=== PATIENT | female | born 1955 | race Caucasian/White ===

== ENCOUNTER 2017-04-24 12:47 | Outpatient (CLI) | payer BC ==
--- NOTE | 2017-04-27 10:44 | DEXA Report ---
DEXA SCAN: 04/24/2017 CLINICAL INDICATION: Osteopenia. TECHNIQUE: Dual energy x-ray absorptiometry (DXA) was performed on a Pixia system. Regions measured are the AP spine, femoral neck, and, if needed, forearm. COMPARISON: None. In accordance with the International Society for Clinical Densitometry (ISCD) guidelines, data from previous exams may be reanalyzed using current recommendations and techniques. This is done to allow a more accurate basis for comparison with the current study. FINDINGS: The data for the lumbar spine is as follows: REGION BMD (g/cm/cm) T-SCORE Z-SCORE L1 0.913 -1.8 -0.9 L2 0.975 -1.9 -0.9 L3 0.985 -1.8 -0.8 L4 1.009 -1.6 -0.7 TOTAL 0.975 -1.7 -0.8 NOTE: All evaluable vertebrae are used for classification. The data for the hip is as follows: REGION BMD (g/cm/cm) T-SCORE Z-SCORE Neck 0.833 -1.5 -0.4 TOTAL 0.810 -1.6 -0.8 NOTE: The femoral neck or total proximal femur, whichever is lowest, is used for classification. IMPRESSION: THE WHO CLASSIFICATION BASED ON THE INTERNATIONAL REFERENCE STANDARD IS OSTEOPENIA. THE FRACTURE RISK IS INCREASED. RECOMMENDATION: Patients with diagnosis of osteoporosis or osteopenia should have regular bone mineral density assessment. For those eligible for Medicare, routine testing is allowed once every 2 years. Testing frequency can be increased for patients who have rapidly progressing disease or for those who are receiving medical therapy to restore bone mass. COMMENT: World Health Organization (WHO) definitions for osteoporosis and osteopenia: NORMAL BMD: T-score at -1.0 or higher, fracture risk is low. OSTEOPENIA BMD: T-score between -1.0 and -2.5, fracture risk is increased. OSTEOPOROSIS BMD: T-score at -2.5 or lower, fracture risk high. National Osteoporosis Foundation recommends: 1. Obtain adequate dietary calcium (at least 1200 mg per day) and vitamin D (400 -800 international units per day). 2. Participate, as appropriate, in regular weightbearing and muscle- strengthening exercise. 3. Avoid tobacco use and reduce alcohol and caffeine intake. 4. For more detailed information see the website at www.NOF.org. MTDD
== END 2017-04-24 12:48 | disposition home or self-care (01) ==
LOC: DI 12:47
PROVIDERS: ATTEND Physician Assistant Medical
DX: M85.89 Other specified disorders of bone density and structure, multiple sites (principal)
CPT/HCPCS: 77080

== ENCOUNTER 2017-12-18 13:09 | Outpatient (CLI) | payer BC ==
--- NOTE | 2017-12-21 16:33 | Mammography Report ---
DIGITAL SCREENING MAMMOGRAM: 12/18/2017 CLINICAL INDICATION: A 62-year-old with history of benign right breast biopsy, for screening. COMPARISON: 09/2016, 02/2015, 12/2013, 09/2012, 09/2011, 09/2010. TECHNIQUE: Routine CC and MLO projections were obtained of the breasts. FINDINGS: The breasts again demonstrate heterogeneously dense fibroglandular parenchyma bilaterally. Postbiopsy changes in the right upper outer central breast are stable. A few punctate, typically benign calcifications are present. No suspicious masses, clustered microcalcifications, or regions of architectural distortion are identified. IMPRESSION: BENIGN FINDINGS. RECOMMENDATION: ROUTINE ANNUAL SCREENING UNLESS OTHERWISE CLINICALLY INDICATED. BIRADS CATEGORY 2-BENIGN FINDINGS. STANDARD QUALIFYING STATEMENTS: 1. This examination was reviewed with the aid of Computer-Aided Detection (CAD). 2. A negative or benign imaging report should not delay biopsy if clinically suspicious findings are present. Consider surgical consultation if warranted. More than 5% of cancers are not identified by imaging. 3. Dense breasts may obscure an underlying neoplasm. TD: 12/21/2017 16:31
== END 2017-12-18 13:10 | disposition home or self-care (01) ==
LOC: DI.N 13:09
PROVIDERS: ATTEND Physician Assistant Medical
DX: Z12.31 Encounter for screening mammogram for malignant neoplasm of breast (principal)
CPT/HCPCS: 77067

== ENCOUNTER 2018-11-30 14:03 | Outpatient (CLI) | payer BC ==
--- NOTE | 2018-11-30 18:28 | CT Report ---
Reason: FLANK PAIN, RIGHT Procedure Date: 11/30/2018 Accession Number: [id number] / [id number] Procedure: CT - Abdomen/Pelvis W/O CPT Code: FULL RESULT: EXAM: CT ABDOMEN AND PELVIS (CT KUB) EXAM DATE: 11/30/2018 02:17 PM. CLINICAL HISTORY: FLANK PAIN, RIGHT. COMPARISONS: None. TECHNIQUE: Routine axial helical CT imaging was performed through the abdomen and pelvis without IV contrast. Reconstructions: Coronal and sagittal. In accordance with CT protocol optimization, one or more of the following dose reduction techniques were utilized for this exam: automated exposure control, adjustment of mA and/or KV based on patient size, or use of iterative reconstructive technique. FINDINGS: Lung Bases: Unremarkable. Right Kidney/Ureter: No stones, hydronephrosis, or hydroureter. No perinephric fat stranding. Left Kidney/Ureter: No stones, hydronephrosis, or hydroureter. No perinephric fat stranding. Other Solid Organs: Noncontrast images of the solid organs are grossly unremarkable. Gallbladder/Bile Ducts: Unremarkable. Peritoneal Cavity: No free fluid, free air or andrew adenopathy. Bowel is grossly unremarkable. Normal appendix with high density material within the appendiceal lumen. Pelvic Organs: Normal urinary bladder. Absent uterus. Vasculature: Unremarkable. Other: Degenerative changes. Scoliosis. IMPRESSION: No urinary tract stones or obstruction. RADIA The call report notification system was initiated by Dr. Epifanio Pimentel at 06:27 PM on 11/30/2018.
== END 2018-11-30 14:04 | disposition home or self-care (01) ==
LOC: DI 14:03
PROVIDERS: ATTEND Physician Assistant Medical
DX: R10.9 Unspecified abdominal pain (principal)
CPT/HCPCS: 74176

== ENCOUNTER 2018-12-13 14:35 | Outpatient (CLI) | payer BC ==
[2018-12-13 19:39] LABS: BILIRUBIN,URINE NEGATIVE (NEGATIVE); GLUCOSE, URINE (UA) NEGATIVE (NEGATIVE); KETONES,URINE (UA) NEGATIVE (NEGATIVE); LEUKOCYTE ESTERASE, URINE NEGATIVE (NEGATIVE); NITRITE,URINE NEGATIVE (NEGATIVE); OCCULT BLOOD,URINE NEGATIVE (NEGATIVE); PROTEIN,URINE NEGATIVE (NEGATIVE); UROBILINOGEN,URINE 0.2 (NORMAL) E.U./dL (NORMAL)
[2018-12-13 19:41] LABS: CLARITY,URINE CLEAR (CLEAR)
[2018-12-13 19:47] LABS: RBC,URINE 0-5 /HPF (0-5)
[2018-12-13 19:48] LABS: BACTERIA,URINE None Seen /HPF (None Seen); SQUAMOUS EPITHELIAL CELL,UR RARE Squamous (<= Few)
== END 2018-12-13 23:59 | disposition home or self-care (01) ==
LOC: LAB.WCP 14:35
PROVIDERS: ATTEND Physician Assistant Medical
DX: R31.9 Hematuria, unspecified (principal)
CPT/HCPCS: 81001; 87086

== ENCOUNTER 2019-06-02 08:00 | Outpatient (CLI) | payer BC, OTHER ==
[2019-06-02 13:07] LABS: BASOPHILS % (AUTO) 0.4 %; EOSINOPHILS % (AUTO) 0.4 %; HGB - HEMOGLOBIN 13.4 g/dL (12.0-16.0); LYMPHOCYTES # (AUTO) 1.5 10^3/uL (1.5-3.5); LYMPHOCYTES % (AUTO) 33.8 %; MEAN CORPUSCULAR HEMOGLOBIN 31.8 pg (27.0-31.0); MEAN CORPUSCULAR HGB CONC 33.6 g/dL (32.0-36.0); MEAN CORPUSCULAR VOLUME 94.8 fL (81.0-99.0); MEAN PLATELET VOLUME 10.7 fL (7.9-10.8); MONOCYTES # (AUTO) 0.3 10^3/uL (0.0-1.0); MONOCYTES % (AUTO) 6.9 %; NEUTROPHILS # (AUTO) 2.6 10^3/uL (1.5-6.6); NEUTROPHILS % (AUTO) 58.3 %; PLT - PLATELET COUNT 141 10^3/uL (130-450); RED BLOOD COUNT 4.21 10^6/uL (4.20-5.40); RED CELL DISTRIBUTION WIDTH 12.1 % (12.0-15.0); WHITE BLOOD COUNT 4.5 x10^3/uL (4.8-10.8)
[2019-06-02 13:44] LABS: ALBUMIN 4.3 g/dL (3.2-5.5); ALBUMIN/GLOBULIN RATIO 1.5 (1.0-2.2); ALKALINE PHOSPHATASE 51 IU/L (42-121); ALT ALANINE AMINOTRANSFERASE 17 IU/L (10-60); AST ASPARTATE AMINOTRANSFERASE 19 IU/L (10-42); BILIRUBIN,TOTAL 0.7 mg/dL (0.2-1.0); BUN - BLOOD UREA NITROGEN 22 mg/dL (6-20); CALCIUM 9.7 mg/dL (8.5-10.3); CARBON DIOXIDE - CO2 26 mmol/L (21-32); CHLORIDE 107 mmol/L (101-111); CHOL/HDL RATIO 2.8 (<4.4); CHOLESTEROL 210 mg/dL; CREATININE 0.9 mg/dL (0.4-1.0); GFR - MDRD 63 (>89); GLUCOSE 93 mg/dL (70-100); HDL CHOLESTEROL 75 mg/dL; LDL CHOLESTEROL,CALCULATED 124 mg/dL; LDL/HDL RATIO 1.7 (<4.4); SODIUM 142 mmol/L (135-145); TOTAL PROTEIN 7.1 g/dL (6.7-8.2); VLDL CHOLESTEROL 11 mg/dL
== END 2019-06-02 23:59 | disposition home or self-care (01) ==
LOC: LAB.N 08:00
PROVIDERS: ATTEND Physician Assistant Medical
DX: G30.9 Alzheimer's disease, unspecified (principal); F02.80 Dementia in other diseases classified elsewhere, unspecified severity, without behavioral disturbance, psychotic disturbance, mood disturbance, and anxiety; R31.9 Hematuria, unspecified; R41.3 Other amnesia; F41.9 Anxiety disorder, unspecified; M85.89 Other specified disorders of bone density and structure, multiple sites
CPT/HCPCS: 36415; 80053; 80061; 83721; 84443; 85025

== ENCOUNTER 2019-07-06 14:33 | Outpatient (CLI) | payer OTHER ==
--- NOTE | 2019-07-07 12:36 | Mammography Report ---
Reason: SCREENING MAMMO Procedure Date: 07/06/2019 Accession Number: [id number] / [id number] Procedure: MGN - Screening Mammo Dig Bilat CPT Code: FULL RESULT: EXAM: Screening Mammo Dig Bilat DATE: 07/06/2019 2:55 PM CLINICAL HISTORY: History of benign right breast biopsy. For routine screening TECHNIQUE: (B) - Bilateral CC and MLO views were obtained. COMPARISON: 12/18/2017, 10/02/2016, 03/01/2015 and 12/29/2013 PARENCHYMAL PATTERN: (D) - The breasts demonstrate heterogeneously dense fibroglandular parenchyma bilaterally. FINDINGS: Postsurgical changes right upper outer quadrant stable. There are no new suspicious masses, calcifications, or areas of distortion. IMPRESSION: Negative examination. BI-RADS category 1. RECOMMENDATION: (ANNUAL) - Recommend routine annual screening mammography. BI-RADS CATEGORY: (1) - Negative. STANDARD QUALIFYING STATEMENTS: 1. This examination was not reviewed with the aid of Computer-Aided Detection (CAD). 2. A negative or benign imaging report should not preclude biopsy if clinically suspicious findings are present. 3. Dense breasts may obscure an underlying neoplasm. 4. This examination was reviewed without the aid of 3D breast imaging (tomosynthesis).
== END 2019-07-06 14:34 | disposition home or self-care (01) ==
LOC: DI.N 14:33
DX: Z12.31 Encounter for screening mammogram for malignant neoplasm of breast (principal)
CPT/HCPCS: 77067

== ENCOUNTER 2019-08-31 09:34 | Day surgery (SDC) | payer OTHER ==
[2019-08-31] MEDS ORDERED: fentaNYL 250 MCG/5 ML VIAL IVP ONE (09:35)
[2019-08-31] MEDS ORDERED: MIDAZOLAM 2 MG/2 ML VIAL IVP ONE (09:35)
[2019-08-31] MEDS ORDERED: LACTATED RINGERS 1,000 ML IV ONE (10:04)
[2019-08-31 13:35] VITALS: BP 104/59
== END 2019-08-31 09:35 | disposition home or self-care (01) ==
LOC: SDS 09:34
PROVIDERS: ATTEND Surgery
PROC: 0DJD8ZZ Inspection of Lower Intestinal Tract, Via Natural or Artificial Opening Endoscopic (ICD-10-PCS; principal; 2019-08-31 11:15)
DX: Z12.11 Encounter for screening for malignant neoplasm of colon (principal); K57.30 Diverticulosis of large intestine without perforation or abscess without bleeding; G30.9 Alzheimer's disease, unspecified; F02.80 Dementia in other diseases classified elsewhere, unspecified severity, without behavioral disturbance, psychotic disturbance, mood disturbance, and anxiety; Z80.0 Family history of malignant neoplasm of digestive organs
CPT/HCPCS: 45378; J3010; J7120

== ENCOUNTER 2020-07-10 10:54 | Outpatient (CLI) | payer OTHER ==
--- NOTE | 2020-07-11 14:13 | Mammography Report ---
BILATERAL DIGITAL SCREENING MAMMOGRAM 3D/2D: 07/10/2020 CLINICAL: Routine screening. Comparison is made to exams dated: 07/06/2019 mammogram, 12/18/2017 mammogram, 10/02/2016 mammogram, mammogram, 12/29/2013 mammogram, and 04/01/2013 ultrasound - [facility]. The tissue of both breasts is predominantly fatty. No significant masses, calcifications, or other findings are seen in either breast. There has been no significant interval change. IMPRESSION: NEGATIVE There is no mammographic evidence of malignancy. A 1 year screening mammogram is recommended. This exam was interpreted at Station ID: [id number]. NOTE: For mammograms, a report in lay terms will be sent to the patient. Approximately 15% of breast malignancies will not be visualized mammographically. In the management of a palpable breast mass, a negative mammogram must not discourage biopsy of a clinically suspicious lesion. Electronically Signed By: Noah Maldonado M.D., jr/arturo:07/10/2020 12:03:23 ACR BI-RADS Category 1: Negative 3341F PARENCHYMAL PATTERN: (F) - The breast(s) demonstrate(s) diffuse fatty replacement. BI-RADS CATEGORY: (1) - 1 RECOMMENDATION: (ANNUAL) - Recommend routine annual screening mammography. [id number] 1 year screening LATERALITY: (B)
== END 2020-07-10 10:55 | disposition home or self-care (01) ==
LOC: DI.N 10:54
DX: Z12.31 Encounter for screening mammogram for malignant neoplasm of breast (principal)
CPT/HCPCS: 77063; 77067

== ENCOUNTER 2021-07-30 15:26 | Outpatient (CLI) | payer OTHER ==
--- NOTE | 2021-07-31 10:11 | Mammography Report ---
BILATERAL DIGITAL SCREENING MAMMOGRAM 3D/2D: 07/30/2021 CLINICAL: Routine screening. Comparison is made to exams dated: 07/10/2020 mammogram, 07/06/2019 mammogram, 12/18/2017 mammogram, mammogram, 03/01/2015 mammogram, and 12/29/2013 mammogram - [facility]. The tissue of both breasts is predominantly fatty. There are benign post operative findings in the right breast. No significant masses, calcifications, or other findings are seen in either breast. There has been no significant interval change. IMPRESSION: BENIGN There is no mammographic evidence of malignancy. A 1 year screening mammogram is recommended. This exam was interpreted at Station ID: [id number]. NOTE: For mammograms, a report in lay terms will be sent to the patient. Approximately 15% of breast malignancies will not be visualized mammographically. In the management of a palpable breast mass, a negative mammogram must not discourage biopsy of a clinically suspicious lesion. Electronically Signed By: Justus Bee acr/penrad:07/30/2021 17:18:02 ACR BI-RADS Category 2: Benign Finding(s) 3342F PARENCHYMAL PATTERN: (F) - The breast(s) demonstrate(s) diffuse fatty replacement. BI-RADS CATEGORY: (2) - 2 RECOMMENDATION: (ANNUAL) - Recommend routine annual screening mammography. [id number] 1 year screening LATERALITY: (B)
== END 2021-07-30 15:27 | disposition home or self-care (01) ==
LOC: DI.N 15:26
DX: Z12.31 Encounter for screening mammogram for malignant neoplasm of breast (principal)

== ENCOUNTER 2021-10-15 15:01 | Outpatient (CLI) | payer OTHER ==
--- NOTE | 2021-10-15 15:54 | XRAY Report ---
PROCEDURE: Lumbar Spine 2 View INDICATIONS: CHRONIC LOW BACK PX TECHNIQUE: 3 views of the lumbar spine were acquired. COMPARISON: None. FINDINGS: Bones: 5 mwl-rhk-vgemmwl vertebrae are present. There is levoscoliosis of the lumbar spine centered at L2. Associated moderate spondylitic changes are seen. Moderate mid and lower lumbar facet arthrop athy. No acute vertebral body compression fractures. No suspicious bony lesions. Soft tissues: Overlying bowel gas pattern is normal. No suspicious soft tissue calcifications. Mayra gical clips are noted in the right upper abdomen. Scattered pelvic calcifications likely representing phleboliths. IMPRESSION: Lumbar spine without acute fracture. Levoscoliosis centered at L2 with moderate associat ed multilevel lumbar spondylosis. Reviewed by: Yo Carlisle MD on 10/15/2021 3:52 PM PST Approved by: Yo Carlisle MD on 10/15/2021 3:52 PM PST Station ID: [id number]
== END 2021-10-15 15:02 | disposition home or self-care (01) ==
LOC: DI.N 15:01
PROVIDERS: ATTEND Physician Assistant Medical
DX: M47.816 Spondylosis without myelopathy or radiculopathy, lumbar region (principal)

== ENCOUNTER 2022-04-09 13:40 | Outpatient (CLI) | payer MEDICARE ==
--- NOTE | 2022-04-10 10:19 | Ultrasound Report ---
PROCEDURE: Carotid Doppler Complete INDICATIONS: SYNCOPE AND COLLAPSE TECHNIQUE: Color and pulse Doppler interrogation was performed of both carotid systems, with image documentation and velocity measurements. COMPARISON: None. FINDINGS: Right side: Brachial blood pressure: 129/62 mm Hg. Common carotid artery peak systolic velocity: 67 cm/sec. Internal carotid artery peak systolic velocity: 71 cm/sec. Internal carotid artery end diastolic velocity: 23 cm/sec. External carotid artery peak systolic velocity: 79 cm/sec. ICA/CCA peak systolic ratio: 1.1 . Willingham scale imaging description: Soft plaque. Percent internal carotid artery stenosis: Less than 50%.. Vertebral artery: Flow direction is antegrade. Left side: Brachial blood pressure: 31/68 mm Hg. Common carotid artery peak systolic velocity: 78 cm/sec. Internal carotid artery peak systolic velocity: 76 cm/sec. Internal carotid artery end diastolic velocity: 19 cm/sec. External carotid artery peak systolic velocity: 89 cm/sec. ICA/CCA peak systolic ratio: 1.0 . Willingham scale imaging description: Soft plaque Percent internal carotid artery stenosis: Soft plaque less than 50% . Vertebral artery: Flow direction is antegrade. IMPRESSION: Less than 50% stenosis of the origins of the right and left internal carotid arteries. The estimate of stenosis included in the report of the imaging study was calculated using the NASCET method Reviewed by: Yohana Coyne MD, PhD on 04/10/2022 10:17 AM PDT Approved by: Yohana Coyne MD, PhD on 04/10/2022 10:17 AM PDT Station ID: [id number]
== END 2022-04-09 13:41 | disposition home or self-care (01) ==
LOC: DI 13:40
PROVIDERS: ATTEND Physician Assistant Medical
DX: R55 Syncope and collapse (principal)
CPT/HCPCS: 93880

== ENCOUNTER 2022-04-09 14:33 | Outpatient (CLI) | payer MEDICARE, OTHER | END 2022-04-09 14:34 | disposition home or self-care (01) | LOC: MAC.MOP 14:33 | PROVIDERS: ATTEND Physician Assistant Medical | DX: R55 Syncope and collapse (principal) | CPT/HCPCS: 93246; 93880 ==

== ENCOUNTER 2022-04-15 13:55 | Outpatient (CLI) | payer MEDICARE, OTHER | END 2022-04-15 13:56 | disposition home or self-care (01) | LOC: DI 13:55 | PROVIDERS: ATTEND Physician Assistant Medical | DX: R55 Syncope and collapse (principal); I49.3 Ventricular premature depolarization | CPT/HCPCS: 93306 ==

== ENCOUNTER 2022-09-29 14:23 | Outpatient (CLI) | payer MEDICARE, OTHER ==
--- NOTE | 2022-09-30 15:24 | Mammography Report ---
BILATERAL DIGITAL SCREENING MAMMOGRAM 3D/2D: 09/29/2022 CLINICAL: Routine screening. Comparison is made to exams dated: 07/30/2021 mammogram, 07/10/2020 mammogram, 07/06/2019 mammogram, mammogram, 10/02/2016 mammogram, and 03/01/2015 mammogram - [facility]. Both breasts are almost entirely fatty (category a/<25% glandular tissue). There are benign post operative findings in the right breast. No significant masses, calcifications, or other findings are seen in either breast. There has been no significant interval change. IMPRESSION: BENIGN There is no mammographic evidence of malignancy. A 1 year screening mammogram is recommended. Based on the Tyrer Cuzick model (a risk assessment model) the patients lifetime risk is 2.8% and her 10 year risk is 1.3%. According to the ACR, ACS, and NCCN guidelines, an annual breast MRI exam elle g with mammogram is recommended if the patients lifetime risk is 20% or greater. This exam was interpreted at Station ID: [id number]. NOTE: For mammograms, a report in lay terms will be sent to the patient. Approximately 15% of breast malignancies will not be visualized mammographically. In the management of a palpable breast mass, a negative mammogram must not discourage biopsy of a clinically suspicious lesion. Electronically Signed By: Cam whittington/penrad:09/29/2022 15:05:16 ACR BI-RADS Category 2: Benign Finding(s) 3342F PARENCHYMAL PATTERN: (F) - The breast(s) demonstrate(s) diffuse fatty replacement. BI-RADS CATEGORY: (2) - 2 RECOMMENDATION: (ANNUAL) - Recommend routine annual screening mammography. [id number] 1 year screening LATERALITY: (B)
== END 2022-09-29 14:24 | disposition home or self-care (01) ==
LOC: DI.N 14:23
DX: Z12.31 Encounter for screening mammogram for malignant neoplasm of breast (principal)

== ENCOUNTER 2023-03-15 22:24 | Emergency (ER) | payer MEDICARE, OTHER ==
[2023-03-15 23:05] LABS: BASOPHILS % (AUTO) 0.4 %; EOSINOPHILS % (AUTO) 0.2 %; HCT - HEMATOCRIT 37.1 % (37.0-47.0); HGB - HEMOGLOBIN 12.7 g/dL (12.0-16.0); LYMPHOCYTES # (AUTO) 1.7 10^3/uL (1.5-3.5); LYMPHOCYTES % (AUTO) 31.1 %; MEAN CORPUSCULAR HEMOGLOBIN 31.8 pg (27.0-31.0); MEAN CORPUSCULAR HGB CONC 34.2 g/dL (32.0-36.0); MEAN PLATELET VOLUME 10.3 fL (7.9-10.8); MONOCYTES # (AUTO) 0.3 10^3/uL (0.0-1.0); MONOCYTES % (AUTO) 6.4 %; NEUTROPHILS # (AUTO) 3.3 10^3/uL (1.5-6.6); NEUTROPHILS % (AUTO) 61.7 %; PLT - PLATELET COUNT 128 10^3/uL (130-450); RED BLOOD COUNT 3.99 10^6/uL (4.20-5.40); RED CELL DISTRIBUTION WIDTH 12.6 % (12.0-15.0); WHITE BLOOD COUNT 5.3 x10^3/uL (4.8-10.8)
[2023-03-15 23:16] LABS: ALBUMIN 3.8 g/dL (3.2-5.5); ALBUMIN/GLOBULIN RATIO 1.6 (1.0-2.2); BILIRUBIN,TOTAL 0.6 mg/dL (0.2-1.0); CALCIUM 9.3 mg/dL (8.5-10.3); CREATININE 0.7 mg/dL (0.4-1.0); POTASSIUM 3.1 mmol/L (3.5-5.0); TOTAL PROTEIN 6.2 g/dL (6.7-8.2)
--- NOTE | 2023-03-15 23:18 | XRAY Report ---
PROCEDURE: Chest 1 View X-Ray INDICATIONS: Chest pain TECHNIQUE: One view of the chest was acquired. COMPARISON: None. FINDINGS: Surgical changes and devices: Right upper quadrant surgical clips. An electronic device projects ove r the left lower chest. Lungs and pleura: No pleural effusions or pneumothorax. Lungs are clear. Mediastinum: Mediastinal contours appear normal. Heart size is normal. Bones and chest wall: No suspicious bony lesions. Overlying soft tissues appear unremarkable. IMPRESSION: No acute cardiopulmonary process. Reviewed by: Jaun Mcdonnell MD on 03/15/2023 11:17 PM PDT Approved by: Jaun Mcdonnell MD on 03/15/2023 11:17 PM PDT Station ID: [id number]
--- NOTE | 2023-03-16 01:52 | ED Physician Documentation ---
PD HPI CHEST PAIN - Stated complaint Stated Complaint: CHEST PX - Chief complaint Chief Complaint: Cardiac - History obtained from History obtained from: Patient, Family - Additional information Additional information: The patient is brought to the emergency department by her for chief complaint of upper abdominal or chest pain today. The patient has dementia and does not have a lot of recollection of exactly what happened, but her states that she began to complain of some pain around 1730 today. He states that could not quite make out exactly where the pain might be, and that it seemed as though it was in both her upper abdomen and her chest. The patient has had pains like this on and off before and no exact causes been found for it. The patient's pain has waxed and waned a little but has mostly gotten better at this point. The patient denies any nausea. states she has not vomited. No changes in her bowel habits. She has not been eating very much lately but Over the last couple of days, the patient did have a grilled cheese sandwich, fries, and a candy bar. This is much more food and much heavier and richer than she has been accustomed to eating lately, so her is not clear if perhaps the food caused the symptoms. The patient denies any complaints right now. She has not seemed sick with anything according to her , otherwise. 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, Hysterectomy - Present Medications Home Medications: Ambulatory Orders Medication Instructions Recorded Confirmed Donepezil [Aricept] 5 mg PO DAILY 08/31/19 08/31/19 - Allergies Allergies/Adverse Reactions: Allergies Allergy/AdvReac Type Severity Reaction Status Date / Time No Known Drug Allergies Allergy Verified 03/15/23 22:33 PD ED PE NORMAL - Vitals Vital signs reviewed: Yes - General General: No acute distress, Well developed/nourished, Other (Alert and appropriate) - HEENT HEENT: Atraumatic, PERRL, EOMI, Moist mucous membranes - Neck Neck: Supple, no meningeal sign - Cardiac Cardiac: RRR, No murmur, Strong equal pulses - Respiratory Respiratory: No respiratory distress, Clear bilaterally - Abdomen Abdomen: Soft, Non tender, Non distended - Derm Derm: Normal color, Warm and dry, No rash - Extremities Extremities: No deformity, No edema - Neuro Neuro: Alert and oriented X 3 - Psych Psych: Normal mood, Normal affect Results - Vitals Vitals: Vital Signs - 24 hr 03/15/23 03/15/23 03/15/23 22:31 23:45 23:49 Heart Rate 66 63 Respiratory 18 17 Rate Blood Pressure 125/65 129/79 O2 Saturation 100 100 03/16/23 03/16/23 00:44 02:07 Heart Rate 64 64 Respiratory 18 16 Rate Blood Pressure 118/68 136/79 H O2 Saturation 100 100 Oxygen O2 Source Room air - EKG (time done) 2234 EKG releavant findings:: EKG personally interpreted by author of this note. Relevant findings are: Rate: Rate (enter#) (61) Rhythm: NSR [place]: Normal Intervals: Normal [place] QRS: Normal Ischemia: Non specific changes Compare to prior EKG: Old EKG unavailable Computer interpretation: Agree with computer - Labs Labs: Laboratory Tests 03/15/23 03/15/23 03/15/23 22:58 22:58 22:58 WBC 5.3 RBC 3.99 L Hgb 12.7 Hct 37.1 MCV 93.0 MCH 31.8 H MCHC 34.2 RDW 12.6 Plt Count 128 L MPV 10.3 Neut # (Auto) 3.3 Lymph # (Auto) 1.7 [place] # (Auto) 0.3 Eos # (Auto) 0.0 Baso # (Auto) 0.0 Absolute Nucleated RBC 0.00 Nucleated RBC % 0.0 Sodium 140 Potassium 3.1 L Chloride 107 Carbon Dioxide 29 Anion Gap 4.0 L BUN 14 Creatinine 0.7 Estimated GFR (MDRD) 84 L Glucose 117 H Calcium 9.3 Total Bilirubin 0.6 AST 82 H ALT 33 Alkaline Phosphatase 51 Troponin I High Sens 4.3 Total Protein 6.2 L Albumin 3.8 Globulin 2.4 Albumin/Globulin Ratio 1.6 Lipase 69 H 03/16/23 00:22 WBC RBC Hgb Hct MCV MCH MCHC RDW Plt Count MPV Neut # (Auto) Lymph # (Auto) [place] # (Auto) Eos # (Auto) Baso # (Auto) Absolute Nucleated RBC Nucleated RBC % Sodium Potassium Chloride Carbon Dioxide Anion Gap BUN Creatinine Estimated GFR (MDRD) Glucose Calcium Total Bilirubin AST ALT Alkaline Phosphatase Troponin I High Sens 4.5 Total Protein Albumin Globulin Albumin/Globulin Ratio Lipase - Rads (name of study) Chest x-ray Relevant Findings:: Final report received, See rad report (Negative) PD Medical Decision Making - ED course Complexity details: reviewed results, re-evaluated patient, considered differential, d/w patient, d/w family ED course: The patient was worked up with laboratory studies, including CBC, ER abdominal panel, and troponin, including repeat troponin, all of which were reviewed by me and unremarkable. The patient's x-ray and EKG were also unremarkable. The patient was feeling better and I felt she was stable for discharge home. I am not sure exactly what is caused her symptoms tonight, but no emergent condition has been identified, as I discussed with the patient's . We have discussed the usual indications for follow-up and return. Departure - Departure Disposition: 01 Home, Self Care Clinical Impression: Atypical chest pain Condition: Stable Instructions: ED Chest Pain Atypical Unkn Cause Comments: The labs and EKG look good. It is not clear what caused the discomfort tonight, but no emergent condition has been identified. Please follow-up with your primary doctor for further concerns or if you continue to have episodes of chest pain. Discharge Date/Time: 03/16/23 02:10
[2023-03-16 02:10] VITALS: BP 136/79
== END 2023-03-16 02:10 | disposition home or self-care (01) ==
LOC: ED 22:24
DX: R07.89 Other chest pain (principal)
CPT/HCPCS: 36415; 80053; 83690; 84484; 85025; 93005; 99283; 99284

== ENCOUNTER 2023-04-09 13:12 | Outpatient (CLI) | payer MEDICARE, OTHER ==
[2023-04-09 18:14] LABS: BASOPHILS % (AUTO) 0.5 %; HGB - HEMOGLOBIN 12.8 g/dL (12.0-16.0); LYMPHOCYTES # (AUTO) 1.6 10^3/uL (1.5-3.5); LYMPHOCYTES % (AUTO) 26.9 %; MEAN CORPUSCULAR HEMOGLOBIN 31.7 pg (27.0-31.0); MEAN CORPUSCULAR HGB CONC 33.7 g/dL (32.0-36.0); MEAN CORPUSCULAR VOLUME 94.1 fL (81.0-99.0); MEAN PLATELET VOLUME 10.9 fL (7.9-10.8); MONOCYTES # (AUTO) 0.3 10^3/uL (0.0-1.0); MONOCYTES % (AUTO) 5.4 %; PLT - PLATELET COUNT 172 10^3/uL (130-450); RED BLOOD COUNT 4.04 10^6/uL (4.20-5.40); RED CELL DISTRIBUTION WIDTH 12.7 % (12.0-15.0); WHITE BLOOD COUNT 5.9 x10^3/uL (4.8-10.8)
[2023-04-09 18:15] LABS: ALBUMIN 3.9 g/dL (3.2-5.5); ALBUMIN/GLOBULIN RATIO 1.3 (1.0-2.2); BILIRUBIN,TOTAL 0.5 mg/dL (0.2-1.0); CALCIUM 9.3 mg/dL (8.5-10.3); CREATININE 0.7 mg/dL (0.4-1.0); POTASSIUM 3.6 mmol/L (3.5-5.0); TOTAL PROTEIN 6.8 g/dL (6.7-8.2)
[2023-04-09 18:48] LABS: THYROID STIMULATING HORMONE 1.1 uIU/mL (0.34-5.60)
== END 2023-04-09 13:13 | disposition home or self-care (01) ==
LOC: LAB.N 13:12
PROVIDERS: ATTEND Family Medicine
DX: G30.9 Alzheimer's disease, unspecified (principal); F02.80 Dementia in other diseases classified elsewhere, unspecified severity, without behavioral disturbance, psychotic disturbance, mood disturbance, and anxiety; M85.80 Other specified disorders of bone density and structure, unspecified site; R42 Dizziness and giddiness
CPT/HCPCS: 36415; 80053; 84443; 85025

== ENCOUNTER 2023-09-30 23:04 | Outpatient (CLI) | payer MEDICARE, OTHER | END 2023-09-30 23:05 | disposition critical access hospital (66) | LOC: EMS 23:04 | DX: R55 Syncope and collapse (principal); R11.2 Nausea with vomiting, unspecified; R53.1 Weakness; F03.90 Unspecified dementia, unspecified severity, without behavioral disturbance, psychotic disturbance, mood disturbance, and anxiety | CPT/HCPCS: A0425; A0427 ==

== ENCOUNTER 2023-09-30 23:35 | Emergency (ER) | payer MEDICARE, OTHER ==
[2023-09-30 23:57] VITALS: O2SAT 100
[2023-10-01] MEDS ORDERED: SODIUM CHLORIDE 0.9% 1,000 ML IV STA (00:03)
[2023-10-01] MEDS ORDERED: ONDANSETRON 4 MG/2 ML VIAL IVP STA (00:04)
--- NOTE | 2023-10-01 00:17 | ED Physician Documentation ---
History of Present Illness - Stated complaint Stated Complaint: SYNCOPE, N/V - Chief complaint Chief Complaint: Neuro - History obtained from History obtained from: Patient, Family (partner) - Additonal information Additional information: 67yF currently undergoing [employer] cardiac monitoring for multiple syncopal events p/w fainting episode tonight without preceding symptoms. patient unable to provide further history stating she does not remember the event. states he saw her faint and noted the event on her property assessment monitor at the time it happened. no tongue biting, urinary or fecal incontinence or tonic clonic activity witnessed. Review of Systems Constitutional: denies: Fever, Chills Cardiac: denies: Chest pain / pressure, Palpitations Respiratory: denies: Dyspnea GI: denies: Nausea, Vomiting Neurologic: reports: Syncope. 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 - Present Medications Home Medications: Ambulatory Orders Medication Instructions Recorded Confirmed Donepezil [Aricept] 5 mg PO DAILY 08/31/19 08/31/19 - Allergies Allergies/Adverse Reactions: Allergies Allergy/AdvReac Type Severity Reaction Status Date / Time No Known Drug Allergies Allergy Verified 03/15/23 22:33 - Social History Does the pt smoke?: No Smoking Status: Never smoker - Immunizations Immunizations are current?: Yes - POLST Patient has POLST: No PD ED PE NORMAL - Vitals Vital signs reviewed: Yes - General General: Alert and oriented X 3, No acute distress, Well developed/nourished - HEENT HEENT: Atraumatic, PERRL - Neck Neck: Supple, no meningeal sign - Cardiac Cardiac: RRR - Respiratory Respiratory: No respiratory distress, Clear bilaterally - Abdomen Abdomen: Non tender, Non distended - Derm Derm: Normal color, Warm and dry - Neuro Neuro: Alert and oriented X 3, 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 Relevant findings are: Rate: Rate (enter#) (47) Rhythm: Sinus bradycardia [place]: Normal Intervals: Normal [place] QRS: Normal Ischemia: Normal ST segments - Labs Labs: Laboratory Tests 10/01/23 10/01/23 10/01/23 00:37 00:37 00:37 WBC 8.3 RBC 3.99 L Hgb 12.8 Hct 37.5 MCV 94.0 MCH 32.1 H MCHC 34.1 RDW 12.0 Plt Count 118 L MPV 10.0 Neut # (Auto) 6.3 Lymph # (Auto) 1.5 [place] # (Auto) 0.4 Eos # (Auto) 0.0 Baso # (Auto) 0.0 Absolute Nucleated RBC 0.00 Nucleated RBC % 0.0 Sodium 140 Potassium 3.6 Chloride 108 Carbon Dioxide 28 Anion Gap 4.0 L BUN 27 H Creatinine 0.6 Estimated GFR (MDRD) 100 Glucose 135 H Calcium 9.6 Total Bilirubin 0.4 AST 60 H ALT 30 Alkaline Phosphatase 68 Troponin I High Sens 2.3 Total Protein 6.4 Albumin 3.9 Globulin 2.5 Albumin/Globulin Ratio 1.6 Lipase 28 TSH 4.80 PD Medical Decision Making - ED course ED course: 67yF presents to the ED with syncopal episode while wearing property assessment monitor. called [employer] rep who noted HR slowed down to 23 at the time of the syncopal episode. she also had 3.5 second sinus pause. Contacted spray cementer Dr. Walters at [facility] for transfer for evaluation for pacemaker placement. D/W Dr. Kaplan, spray cementer brood station manager at [facility] who agrees patient should be transferred to [facility] for evaluation for pacemaker. d/w Dr. Cotter, hospitalist who accepts in transfer. Departure - Departure Disposition: 02 Transfer Acute Care Hosp Clinical Impression: Symptomatic bradycardia, Syncope Condition: Stable Forms: PCP List
[2023-10-01 00:43] LABS: BASOPHILS % (AUTO) 0.4 %; HCT - HEMATOCRIT 37.5 % (37.0-47.0); HGB - HEMOGLOBIN 12.8 g/dL (12.0-16.0); LYMPHOCYTES # (AUTO) 1.5 10^3/uL (1.5-3.5); LYMPHOCYTES % (AUTO) 18.5 %; MEAN CORPUSCULAR HEMOGLOBIN 32.1 pg (27.0-31.0); MEAN CORPUSCULAR HGB CONC 34.1 g/dL (32.0-36.0); MONOCYTES # (AUTO) 0.4 10^3/uL (0.0-1.0); MONOCYTES % (AUTO) 4.4 %; NEUTROPHILS # (AUTO) 6.3 10^3/uL (1.5-6.6); NEUTROPHILS % (AUTO) 76.6 %; PLT - PLATELET COUNT 118 10^3/uL (130-450); RED BLOOD COUNT 3.99 10^6/uL (4.20-5.40); WHITE BLOOD COUNT 8.3 x10^3/uL (4.8-10.8)
[2023-10-01 00:54] LABS: ALBUMIN 3.9 g/dL (3.2-5.5); ALBUMIN/GLOBULIN RATIO 1.6 (1.0-2.2); BILIRUBIN,TOTAL 0.4 mg/dL (0.2-1.0); CALCIUM 9.6 mg/dL (8.5-10.3); CREATININE 0.6 mg/dL (0.6-1.3); POTASSIUM 3.6 mmol/L (3.5-4.5); TOTAL PROTEIN 6.4 g/dL (6.4-8.9)
[2023-10-01 01:02] LABS: TROPONIN I HIGH SENSITIVITY 2.3 ng/L (2.3-14.8)
--- NOTE | 2023-10-01 01:08 | XRAY Report ---
PROCEDURE: Chest 1 View X-Ray INDICATIONS: Chest Pain TECHNIQUE: One view of the chest was acquired. COMPARISON: 03/07/2023 FINDINGS: Surgical changes and devices: [Chronic device projects over the left lower chest as before. Surgical clips project over the lower chest wall/breast. Lungs and pleura: No pleural effusions or pneumothorax. Lungs are clear. Mediastinum: Mediastinal contours appear normal. Heart size is normal. Bones and chest wall: No suspicious bony lesions. Overlying soft tissues appear unremarkable. IMPRESSION: No acute cardiopulmonary process. No focal consolidation. Reviewed by: Yo Duenas MD on 10/01/2023 1:07 AM [facility] Approved by: Yo Duenas MD on 10/01/2023 1:07 AM [facility] Station ID: [id number]
[2023-10-01 06:57] VITALS: BP 116/74
== END 2023-10-01 06:55 | disposition short-term general hospital (02) ==
LOC: EDUNIT# → ED 23:35
DX: R00.1 Bradycardia, unspecified (principal); R55 Syncope and collapse
CPT/HCPCS: 36415; 80053; 83690; 84443; 84484; 85025; 93005; 99284; 99285

== ENCOUNTER 2023-10-01 06:57 | Outpatient (CLI) | payer MEDICARE, OTHER | END 2023-10-01 06:58 | disposition short-term general hospital (02) | LOC: EMS 06:57 | PROVIDERS: ATTEND Emergency Medicine | DX: R00.1 Bradycardia, unspecified (principal); R55 Syncope and collapse; F03.90 Unspecified dementia, unspecified severity, without behavioral disturbance, psychotic disturbance, mood disturbance, and anxiety | CPT/HCPCS: A0425; A0428 ==

== ENCOUNTER 2023-10-27 10:31 | Outpatient (CLI) | payer MEDICARE, OTHER ==
--- NOTE | 2023-10-28 09:59 | Mammography Report ---
BILATERAL DIGITAL SCREENING MAMMOGRAM: 10/27/2023 CLINICAL: Routine screening. Comparison is made to exams dated: 09/29/2022 mammogram, 07/30/2021 mammogram, and 07/10/2020 mammogr am - [facility]. There are scattered areas of fibroglandular density in both breasts (category b / 25%-50% glandular t issue). There are benign post operative findings in the right breast. No significant masses, calcifications, or other findings are seen in either breast. There has been no significant interval change. IMPRESSION: BENIGN There is no mammographic evidence of malignancy. A 1 year screening mammogram is recommended. Based on the Tyrer Cuzick model (a risk assessment model) the patients lifetime risk is 4.1% and her 10 year risk is 2.0%. According to the ACR, ACS, and NCCN guidelines, an annual breast MRI exam elle g with mammogram is recommended if the patients lifetime risk is 20% or greater. This exam was interpreted at Station ID: [id number]. NOTE: For mammograms, a report in lay terms will be sent to the patient. Approximately 15% of breast malignancies will not be visualized mammographically. In the management of a palpable breast mass, a negative mammogram must not discourage biopsy of a clinically suspicious lesion. Electronically Signed By: Jaun mendez/arturo:10/27/2023 15:25:07 letter sent: No_Letter ACR BI-RADS Category 2: Benign Finding(s) 3342F PARENCHYMAL PATTERN: (A) - The breast(s) demonstrate(s) scattered fibroglandular densities. BI-RADS CATEGORY: (2) - 2 Mammogram [id number] 1 year screening LATERALITY: (B)
== END 2023-10-27 10:32 | disposition home or self-care (01) ==
LOC: DI.N 10:31
DX: Z12.31 Encounter for screening mammogram for malignant neoplasm of breast (principal); R92.323 Mammographic fibroglandular density, bilateral breasts

== ENCOUNTER 2024-05-20 15:30 | Outpatient (CLI) | payer MEDICARE, OTHER ==
[2024-05-20 16:07] LABS: ALBUMIN 4.1 g/dL (3.2-5.5); ALBUMIN/GLOBULIN RATIO 1.8 (1.0-2.2); BILIRUBIN,TOTAL 0.4 mg/dL (0.2-1.0); CALCIUM 9.8 mg/dL (8.5-10.3); CREATININE 0.8 mg/dL (0.6-1.3); POTASSIUM 3.8 mmol/L (3.5-4.5); TOTAL PROTEIN 6.4 g/dL (6.4-8.9)
== END 2024-05-20 15:31 | disposition home or self-care (01) ==
LOC: LAB 15:30
PROVIDERS: ATTEND Physician Assistant Medical
DX: R55 Syncope and collapse (principal); G30.9 Alzheimer's disease, unspecified; F02.80 Dementia in other diseases classified elsewhere, unspecified severity, without behavioral disturbance, psychotic disturbance, mood disturbance, and anxiety
CPT/HCPCS: 36415; 80053; 82607